=== PATIENT | female | born 1945 | race Caucasian/White ===

== ENCOUNTER 2018-08-14 08:05 | Inpatient (IN) | payer MEDICARE, OTHER ==
[2018-08-07 11:06] LABS: BASOPHILS % (AUTO) 0.6 % (0-1); EOSINOPHILS # (AUTO) 0.1 X10'3 (0-0.9); EOSINOPHILS % (AUTO) 1.9 % (0-6); LYMPHOCYTES # (AUTO) 1.6 X10'3 (1.1-4.8); LYMPHOCYTES % (AUTO) 26.2 % (21-51); MEAN CORPUSCULAR HEMOGLOBIN 31.1 PG (27.0-31.0); MEAN CORPUSCULAR VOLUME 91.5 FL (78-98); MEAN PLATELET VOLUME 9.8 FL (7.4-10.4); MONOCYTES # (AUTO) 0.8 X10'3 (0-0.9); MONOCYTES % (AUTO) 12.9 % (2-12); NEUTROPHILS # (AUTO) 3.5 X10'3 (1.8-7.7); NEUTROPHILS % (AUTO) 58.4 % (42-75); PRE OP HEMATOCRIT 43.3 % (35.0-45.0); PRE OP HEMOGLOBIN 14.7 g/dL (12.0-16.0); PRE OP PLATELET COUNT 287 X10'3 (140-440); RED BLOOD COUNT 4.73 X10'6 (4.20-5.60); RED CELL DISTRIBUTION WIDTH 14.7 % (11.5-14.5)
[2018-08-07 11:25] LABS: PRE OP PROTIME 10.3 SECONDS (9.0-12.0)
[2018-08-07 11:26] LABS: ALBUMIN 3.8 G/DL (3.4-5.0); ALKALINE PHOSPHATASE 62 IU/L (46-116); BLOOD UREA NITROGEN 18 MG/DL (7-18); BUN/CREATININE RATIO 18.4 (6.6-38.0); CALCIUM 8.9 MG/DL (8.5-10.1); CHLORIDE 100 MMOL/L (99-107); CREATININE 0.98 MG/DL (0.40-0.90); PRE OP ALT 47 U/L (30-65); PRE OP ANION GAP 8 (8-16); PRE OP AST 24 U/L (10-37); PRE OP BILIRUB, TOTAL 0.3 MG/DL (0.0-1.0); PRE OP GLUCOSE 86 MG/DL (70-104); PRE OP SODIUM 140 MMOL/L (135-145); TOTAL CARBON DIOXIDE 31.7 MMOL/L (24-32); TOTAL PROTEIN 7.5 G/DL (6.4-8.2); eGFR 56 ML/MIN
[2018-08-07 11:39] LABS: PRE OP POTASSIUM 3.3 MMOL/L (3.4-5.1)
[~2018-08-14] VITALS: Ht 172.7 cm; Wt 89.2 kg
[2018-08-14] VITALS (18 sets, daily range): BP systolic 90–142; BP diastolic 48–81
[~2018-08-14 08:05] MED LIST: ACET-2319 PO; ATOR40TA71 PO; BUPR-94 PO; CHLO25TA2 PO; CHOL100044 PO; DIPH25CA83 PO; ESTR0.5T4 PO; VENL75CA55 PO; cefazolin/dext.iso 2gm/100 ML IV ONE; famotidine 20mg tablet PO ONE; ringers solution, lacted 1,000 ML IV SCH
[2018-08-14 09:06] LABS: ISTAT CREATININE 0.9 mg/dL (0.6-1.1); ISTAT HGB 14.6 g/dl (12.0-16.0); ISTAT IONIZED CALCIUM 1.15 mmol/L (1.03-1.32); ISTAT K 3.3 mmol/L (3.5-5.1)
[2018-08-14] MEDS ORDERED: VANCOMYCIN INJ 1000 MG in NORMAL SALINE 250ml IV.SOLN IV ONE (09:42)
[2018-08-14] MEDS ORDERED: ketorolac trometh. 30mg/ml inj. ONE (09:54)
[2018-08-14] MEDS ORDERED: vancomycin 1,000mg inj ONE (09:54)
[2018-08-14] MEDS ORDERED: ROPIVAcaine 0.5% (5mg/ml) 30ml vial ONE ×2 (09:54→10:44)
[2018-08-14] MEDS ORDERED: tranexamic acid inj. 900 MG in normal saline 100ml IV soln 91 ML IV ONE ×4 (10:45)
[2018-08-14] MEDS ORDERED: midazolam 2 mg/2 ml injection ONE (10:47)
[2018-08-14] MEDS ORDERED: fentaNYL/PF 50MCG/1 ML 2ML syringe ONE ×2 (10:47→12:33)
[2018-08-14] MEDS ORDERED: sevoflurane 250ml liquid IH ONE (11:01)
[2018-08-14] MEDS ORDERED: dexamethasone sod phosphate 10mg/ml inj ONE (11:01)
[2018-08-14] MEDS ORDERED: propofol inj 20 ML IV ONE (11:44)
[2018-08-14] MEDS ORDERED: LIDOcaine 2% (20mg/ml) 5ml vial ONE (11:44)
[2018-08-14] MEDS ORDERED: ondansetron/PF 4mg/2ml inj ONE (11:44)
[2018-08-14] MEDS ORDERED: ePHEDrine 50MG/ML INJ. ONE (11:45)
[2018-08-14] MEDS ORDERED: ondansetron/PF 4mg/2ml inj IV PRN ×2 (12:05→13:05)
[2018-08-14] MEDS ORDERED: hydrALAZINE 20mg/ml inj. IV PRN (12:05)
[2018-08-14] MEDS ORDERED: enalaprilat dihydrate 2.5mg/2ml vial IV PRN (12:05)
[2018-08-14] MEDS ORDERED: ringers solution, lacted 1,000 ML IV SCH (12:05)
[2018-08-14] MEDS ORDERED: morphine 4 MG/ML inj SYRINge IV PRN ×2 (12:05)
[2018-08-14] MEDS ORDERED: oxyCODONE IR 5mg (immed. release) tablet PO PRN ×2 (13:05)
[2018-08-14] MEDS ORDERED: bisacodyl 10mg suppository rectal RC PRN (13:05)
[2018-08-14] MEDS ORDERED: acetaminophen 325mg tablet PO PRN (13:05)
[2018-08-14] MEDS ORDERED: diphenhydrAMINE 25mg capsule PO PRN ×2 (13:05)
[2018-08-14] MEDS ORDERED: HYDROmorphone inj. 0.5 MG/0.5 ML DISP.SYRIN IV PRN ×2 (13:05)
[2018-08-14] MEDS ORDERED: magnesium hydroxide 30ml (MOM) UD suspension PO PRN (13:05)
[2018-08-14] MEDS: ketorolac tromethamine 15mg/ml inj. IV SCH (15:06)
[2018-08-14] MEDS: potassium cl 20mEq in 1/2 NS 1,000 ML IV SCH (15:07)
[2018-08-14] MEDS: acetaminophen 325mg tablet PO SCH (15:07)
[2018-08-14] MEDS ORDERED: vancomycin/NS 1 GM ADD-VANTAGE 250 ML IV SCH (20:00)
[2018-08-14] MEDS ORDERED: diphenhydrAMINE 25mg capsule PO SCH (21:00)
[2018-08-14] MEDS ORDERED: sennosides 8.6mg tablet PO SCH (21:00)
[2018-08-14] MEDS ORDERED: non-formulary drug (Acetaminophen/Dp-Hydram Hcl (Tylenol Pm) 2 TAB) PO SCH (21:00)
[2018-08-14] MEDS: gabapentin 300mg capsule PO SCH (21:34)
[2018-08-15 02:00] VITALS: BP 100/52
[2018-08-15] MEDS: ketorolac tromethamine 15mg/ml inj. IV SCH ×2 (02:06→07:41)
[2018-08-15] MEDS: acetaminophen 325mg tablet PO SCH ×2 (02:07→07:39)
[2018-08-15] MEDS: potassium cl 20mEq in 1/2 NS 1,000 ML IV SCH (02:12)
[2018-08-15 05:20] LABS: BASOPHILS % (AUTO) 0.1 % (0-1); EOSINOPHILS % (AUTO) 0 % (0-6); HEMATOCRIT 37.1 % (35.0-45.0); HEMOGLOBIN 12.5 g/dl (12.0-16.0); LYMPHOCYTES # (AUTO) 0.8 X10'3 (1.1-4.8); LYMPHOCYTES % (AUTO) 6.3 % (21-51); MEAN CORPUSCULAR HEMOGLOBIN 31.2 PG (27.0-31.0); MEAN CORPUSCULAR HGB CONC 33.7 % (33.0-36.5); MEAN CORPUSCULAR VOLUME 92.6 FL (78-98); MEAN PLATELET VOLUME 10.2 FL (7.4-10.4); MONOCYTES # (AUTO) 1.2 X10'3 (0-0.9); MONOCYTES % (AUTO) 9.7 % (2-12); NEUTROPHILS # (AUTO) 10.8 X10'3 (1.8-7.7); NEUTROPHILS % (AUTO) 83.9 % (42-75); PLATELET COUNT 244 X10'3 (140-440); RED BLOOD COUNT 4.01 X10'6 (4.20-5.60); RED CELL DISTRIBUTION WIDTH 14.9 % (11.5-14.5); WHITE BLOOD COUNT 12.8 X10'3 (4.5-11.0)
[2018-08-15 05:39] LABS: ANION GAP 11 (8-16); CHLORIDE 100 MMOL/L (99-107); POTASSIUM 3.3 MMOL/L (3.5-5.1); SODIUM 139 MMOL/L (135-145); TOTAL CARBON DIOXIDE 28.1 MMOL/L (24-32)
[2018-08-15 06:00] VITALS: BP 97/46
[2018-08-15] MEDS: gabapentin 300mg capsule PO SCH (07:38)
[2018-08-15] MEDS ORDERED: vitamin D (cholecalciferol) 1,000 unit tablet PO SCH (08:00)
[2018-08-15] MEDS ORDERED: venlafaxine XR 75mg capsule (Q24H) PO SCH (08:00)
[2018-08-15] MEDS ORDERED: chlorthalidone 25mg tablet PO SCH (08:00)
[2018-08-15] MEDS ORDERED: atorvastatin 20mg tablet PO SCH (08:00)
[2018-08-15] MEDS ORDERED: buPROPion 75mg tablet PO SCH (08:00)
[2018-08-15] MEDS ORDERED: aspirin 325mg tablet PO SCH (08:30)
[2018-08-15] MEDS ORDERED: ASPI-1 PO (10:14)
[2018-08-15] MEDS ORDERED: celeCOXIB 100mg capsule PO SCH (20:00)
[2018-08-16] MEDS ORDERED: acetaminophen 325mg tablet PO PRN (13:05)
== END 2018-08-15 11:10 | disposition home or self-care (01) | DRG 483 ==
LOC: PAS IN 08:05 → EDSTATUS 11:00 → ORTHO 4S 14:25
PROVIDERS: ADMIT Orthopaedic Surgery; ATTEND Orthopaedic Surgery
PROC: 0LS40ZZ Reposition Left Upper Arm Tendon, Open Approach (ICD-10-PCS; 2018-08-14)
PROC: 3E0T3BZ Introduction of Anesthetic Agent into Peripheral Nerves and Plexi, Percutaneous Approach (ICD-10-PCS; 2018-08-14)
PROC: 0RRK0JZ Replacement of Left Shoulder Joint with Synthetic Substitute, Open Approach (ICD-10-PCS; principal; 2018-08-14 11:01)
DX: M19.012 Primary osteoarthritis, left shoulder (principal); M75.22 Bicipital tendinitis, left shoulder; I10 Essential (primary) hypertension; E78.5 Hyperlipidemia, unspecified; F32.9 Major depressive disorder, single episode, unspecified
CPT/HCPCS: 36415; 73020; 80047; 80051; 80053; 85025; 85610; 85730; 87070; 97110; 97116; 97161; A7000; C1713; C1776; G0378; J0690; J1100; J1885; J2001; J2250; J2405; J2704; J2795; J3010; J3370; J7030; J7040; J7120; Q0163

== ENCOUNTER 2025-03-28 07:17 | Day surgery (SDC) | payer MEDICARE, OTHER ==
--- NOTE | 2025-03-25 11:10 | ELECTROCARDIOGRAPH REPORT ---
[facility] Test Date: 2025-03-25 Test Time: 11:06:15 Pat Name: CIELO BROWN Department: [facility]-PRE-OP Patient ID: [id number] Room: Gender: F Home Performance Consultant: RIGOBERTO : 1945 Requested By: LAYNE ENRIQUE Order Number: [id number] Reading MD: Dr. Collins Monk Measurements Intervals [place] Rate: 75 P: 44 AL: 194 QRS: -47 QRSD: 162 T: 98 QT: 441 QTc: 493 Interpretive Statements Sinus rhythm Left bundle branch block Electronically Signed On 03-27-2025 19:11:[address] Collins Monk Please click the below link to view image of tracing.
[2025-03-25 11:16] LABS: BASOPHILS % (AUTO) 0.8 % (0-1); EOSINOPHILS # (AUTO) 0.1 X10'3 (0-0.9); EOSINOPHILS % (AUTO) 1.3 % (0-6); LYMPHOCYTES # (AUTO) 1.6 X10'3 (1.1-4.8); LYMPHOCYTES % (AUTO) 26.7 % (21-51); MEAN CORPUSCULAR HEMOGLOBIN 29.1 PG (27.0-31.0); MEAN CORPUSCULAR HGB CONC 34.2 g/dL (33.0-36.5); MEAN CORPUSCULAR VOLUME 85.2 FL (78-98); MONOCYTES # (AUTO) 0.7 X10'3 (0-0.9); NEUTROPHILS # (AUTO) 3.7 X10'3 (1.8-7.7); NEUTROPHILS % (AUTO) 60.2 % (42-75); PRE OP HEMATOCRIT 40.2 % (35.0-45.0); PRE OP HEMOGLOBIN 13.7 g/dL (12.0-16.0); PRE OP PLATELET COUNT 256 X10'3 (140-440); PRE OP WHITE BLOOD COUNT 6.1 10'3 (4.8-10.8); RED BLOOD COUNT 4.71 X10'6 (4.20-5.60); RED CELL DISTRIBUTION WIDTH 16.5 % (11.5-14.5)
[2025-03-25 11:25] LABS: ALBUMIN 4.1 G/DL (3.4-5.0); ALBUMIN/GLOBULIN RATIO 1.2 (1.1-1.5); ALKALINE PHOSPHATASE 116 IU/L (46-116); BLOOD UREA NITROGEN 25 MG/DL (7-18); BUN/CREATININE RATIO 23.6 (10.0-20.0); CALCIUM 9.8 MG/DL (8.5-10.1); CHLORIDE 102 MMOL/L (99-107); CREATININE 1.06 MG/DL (0.40-0.90); PRE OP ALT 30 U/L (30-65); PRE OP ANION GAP 8 (8-16); PRE OP AST 24 U/L (10-37); PRE OP BILIRUB, TOTAL 0.6 MG/DL (0.0-1.0); PRE OP GLUCOSE 100 MG/DL (70-104); PRE OP SODIUM 142 MMOL/L (135-145); TOTAL CARBON DIOXIDE 32.2 MMOL/L (24-32); TOTAL PROTEIN 7.4 G/DL (6.4-8.2); eGFR 50 ML/MIN
[2025-03-25 11:31] LABS: PRE OP POTASSIUM 3.3 MMOL/L (3.4-5.1)
[2025-03-28] VITALS (7 sets, daily range): BP systolic 124–152; BP diastolic 62–74; PULSE 65–74; RESP 12–17; TEMP 98.5; O2SAT 95–98
[~2025-03-28] VITALS: Ht 175.3 cm; Wt 83.0 kg
[~2025-03-28 07:17] MED LIST changes: -ACET-2319 PO; +ARIP2TAB67 PO; -BUPR-94 PO; +CELE-127 PO; -CHOL100044 PO; -DIPH25CA83 PO; -ESTR0.5T4 PO; +VENL225T3 PO; -VENL75CA55 PO; -cefazolin/dext.iso 2gm/100 ML IV ONE; -famotidine 20mg tablet PO ONE; -ringers solution, lacted 1,000 ML IV SCH
[2025-03-28] MEDS ORDERED: LIDOcaine 2% (20mg/ml) 5ml vial ONE (07:57)
[2025-03-28] MEDS ORDERED: BUPIVAcaine/PF 2.5mg/ml (0.25%) 10ml vial ONE (07:58)
[2025-03-28] MEDS: ceFAZolin 2gm/dext,iso 50mL 50 ML IV ONE (08:47)
[2025-03-28] MEDS: famotidine 20mg tablet PO ONE (08:49)
[2025-03-28] MEDS: ringers solution, lacted 1,000 ML IV SCH (08:49)
[2025-03-28] MEDS ORDERED: fentaNYL/PF 50MCG/1 ML 2ML syringe ONE (09:46)
[2025-03-28] MEDS: BUPIVAcaine/PF 2.5mg/ml (0.25%) 10ml vial IJ ONE (09:46)
[2025-03-28] MEDS ORDERED: midazolam 1 mg/ML 2ml injection ONE (09:46)
[2025-03-28] MEDS ORDERED: LIDOcaine 0.5% (5mg/ml) 50ml vial ONE (09:48)
[2025-03-28] MEDS ORDERED: acetaminophen 325mg tablet PO ONE (10:35)
[2025-03-28] MEDS: acetaminophen 325mg tablet PO ONE (10:41)
--- NOTE | 2025-03-28 11:57 | OPERATIVE REPORT ---
Operative Report Providers to ~ Date of Procedure: Mar 28, 2025 Pre-Operative Diagnosis: Chronic trigger finger left middle and ring finger with a contracture Post-Operative Diagnosis SAME as PRE-Op Procedure Performed Incision of flexor tendon sheath left middle finger and left ring finger A1 meg Surgeon: Mio Cueva MD Cancer Genetic Counselor None Anesthesiologist: Tavo Pichardo Type of Anesthesia: Other (Local) Findings: Estimated Blood Loss: None Specimen Removed: None Description of Procedure: This patient is a 80-year-old with a chronic locked trigger fingers refractory to nonsurgical treatment. Surgery is indicated to relieve symptoms. Risks and benefits were discussed with the patient and her daughter. Some of the risks of this procedure include but not limited to infection, bleeding, failure to relieve contracture. She agreed to proceed. In the operating room the sedation was given and time-out procedure was performed. The arm was prepped and draped in usual manner with a tourniquet on the forearm. Both the ring and small finger were flexed into the palm were both with a boutonniere type deformity. Combination of Marcaine lidocaine was infiltrated proximal to the planned incision sites. Starting with the middle finger finger was pulled into enough extension to allow a incision to be made at the distal palm level. Dissection was taken down to the tendon sheath which was then released. There were dense adhesions of the flexor tendons and the superficialis appeared to be incarcerated under the A2 meg. Therefore it was felt that release of the superficialis tendon was I had a indicated. This is released at the distal palm level and with the some manipulation we have managed to relieve the contracture and straighten the finger out quite a bit. It is still wanted to flex because of stiffness at the PIPJ joint. Similar incision was made over the ring finger where the incision was made and the tendon sheath was divided at the A1 meg level. There was dense contracture of the superficialis tendon so that was transected as well. The finger then was able to be manipulated and more or less straightened position. The incisions were irrigated and closed with nylon suture. Sterile dressing was applied along with a splint holding the middle ring and small fingers out into near full extension. The tourniquet was released the hand perfused well including the fingers. The patient was then taken to the recovery room in stable condition and tolerated the procedure well. MIO CUEVA Jr., MD Mar 28, 2025 11:57
== END 2025-03-28 10:57 | disposition home or self-care (01) ==
LOC: PAS 07:17
PROVIDERS: ATTEND Orthopaedic Surgery Hand Surgery
DX: M65.332 Trigger finger, left middle finger (principal); M65.342 Trigger finger, left ring finger; F41.9 Anxiety disorder, unspecified; F32.A Depression, unspecified; Z90.710 Acquired absence of both cervix and uterus; Z79.899 Other long term (current) drug therapy; Z98.890 Other specified postprocedural states
CPT/HCPCS: 26055; 36415; 80053; 82948; 85025; 93005; J2003; J2250; J3010; J3490; J7030; J7120; Z7506; Z7512; A4215; A6446; A6449

== ENCOUNTER 2025-07-18 06:03 | Day surgery (SDC) | payer MEDICARE ==
[2025-07-14 14:36] LABS: MEAN PLATELET VOLUME 9.9 FL (7.4-10.4); PRE OP HEMATOCRIT 40.7 % (35.0-45.0); PRE OP HEMOGLOBIN 13.9 g/dL (12.0-16.0); PRE OP PLATELET COUNT 271 X10'3 (140-440); PRE OP WHITE BLOOD COUNT 6.8 10'3 (4.8-10.8); RED CELL DISTRIBUTION WIDTH 13.8 % (11.5-14.5)
[2025-07-14 14:52] LABS: CREATININE 1.00 MG/DL (0.40-0.90); PRE OP ALT 32 U/L (30-65); PRE OP ANION GAP 9 (8-16); PRE OP AST 24 U/L (10-37); PRE OP BILIRUB, TOTAL 0.5 MG/DL (0.0-1.0); PRE OP GLUCOSE 110 MG/DL (70-104); PRE OP POTASSIUM 3.8 MMOL/L (3.4-5.1); PRE OP SODIUM 144 MMOL/L (135-145); TOTAL CARBON DIOXIDE 31.9 MMOL/L (24-32); eGFR 53 ML/MIN
[~2025-07-18] VITALS: Ht 175.3 cm; Wt 83.6 kg
[2025-07-18] VITALS (10 sets, daily range): BP systolic 117–175; BP diastolic 63–71; PULSE 60–70; RESP 12–17; TEMP 98.4; O2SAT 94–97
[2025-07-18] MEDS: ceFAZolin 2gm/dext,iso 50mL 50 ML IV ONE (06:46)
[2025-07-18] MEDS: ringers solution, lacted 1,000 ML IV SCH (06:46)
[2025-07-18] MEDS ORDERED: morphine 4 MG/ML inj SYRINge IV PRN (07:25)
[2025-07-18] MEDS ORDERED: labetalol 20mg/4ml (5mg/ml) syringe IV PRN (07:25)
[2025-07-18] MEDS ORDERED: ondansetron/PF 4mg/2ml inj IV PRN (07:25)
[2025-07-18] MEDS ORDERED: hydrALAZINE 20mg/ml inj. IV PRN (07:25)
[2025-07-18] MEDS ORDERED: HYDROmorphone/PF 0.2 MG/ML SYRINGE IV PRN ×2 (07:25)
[2025-07-18] MEDS ORDERED: ringers solution, lacted 1,000 ML IV SCH (07:25)
[2025-07-18] MEDS ORDERED: LIDOcaine 2% (20mg/ml) 5ml vial ONE (07:27)
[2025-07-18] MEDS ORDERED: triamcinolone acetonide 40mg/ml inj ONE (07:27)
[2025-07-18] MEDS ORDERED: BUPIVAcaine/PF 2.5mg/ml (0.25%) 10ml vial ONE (07:28)
[2025-07-18] MEDS: BUPIVAcaine/PF 2.5mg/ml (0.25%) 10ml vial IJ ONE (07:44)
[2025-07-18] MEDS: LIDOcaine 2% (20mg/ml) 5ml vial SQ ONE (07:44)
[2025-07-18] MEDS ORDERED: fentaNYL/PF 50MCG/1 ML 2ML syringe ONE (07:50)
[2025-07-18] MEDS ORDERED: midazolam 1 mg/ML 2ml injection ONE (07:50)
[2025-07-18] MEDS ORDERED: propofol inj 20 ML IV ONE (07:58)
[2025-07-18] MEDS: acetaminophen 1,000mg/100ml IV 100 ML IV PRN (09:03)
--- NOTE | 2025-07-18 13:15 | OPERATIVE REPORT ---
Operative Report Providers to ~ Date of Procedure: Jul 18, 2025 Pre-Operative Diagnosis: Left small finger trigger finger and contracture Post-Operative Diagnosis SAME as PRE-Op Procedure Performed Left small finger incision of tendon sheath A1 meg and tenotomy of flexor digitorum superficialis tendon Surgeon: Mio Cueva MD Government Clerk None Anesthesiologist: Desean Remy Type of Anesthesia: Other Findings: MCP and PIP contracture and adhesion of the flexor tendons Estimated Blood Loss: None Specimen Removed: None Description of Procedure: The patient is an 80-year-old woman who has got issue with the trigger fingers and chronic contractures in the hand. She previously had surgery on other digits. They her issue was with the small finger as it is contracted and causing hygiene problems in the palm. Surgery is indicated to improve function. She was brought to the operating room where the arm was prepped and draped in usual manner. Local anesthetic was infiltrated proximal to the small finger flexor tendon at the distal palm level and a tourniquet was elevated on the arm. Very difficult to pull out the finger but we are able to make an incision between the base of the digit in the distal palm crease. Dissection to the deeper tissues identified the A1 meg which was released. This helped straighten out the MCP joint a significant amount but there was still PIP contracture because of adhesions of the superficialis tendon. Therefore tenotomy was performed and the further manipulation showed the tendon to traverse distally and with great improvement in the posture of the PIPJ joint. The ring finger was a little stiff as well and gentle manipulation was done on that as well. The incision was irrigated and closed with nylon suture and dressing was applied along with a splint to hold the fingers in the more or less extension. The tourniquet was released the hand perfused well and she was taken to the recovery room in stable condition MIO CUEVA Jr., MD Jul 18, 2025 13:15
== END 2025-07-18 09:29 | disposition home or self-care (01) ==
LOC: PAS 06:03
PROVIDERS: ATTEND Orthopaedic Surgery Hand Surgery
DX: M65.352 Trigger finger, left little finger (principal); I10 Essential (primary) hypertension; M19.90 Unspecified osteoarthritis, unspecified site; Z79.899 Other long term (current) drug therapy; Z90.710 Acquired absence of both cervix and uterus; Z96.652 Presence of left artificial knee joint; Z98.890 Other specified postprocedural states
CPT/HCPCS: 26055; 36415; 80053; 82948; 85025; J0131; J2003; J2250; J2704; J3010; J3490; J7030; J7120; Z7506; Z7512; A4215; A6449; J3301